=== PATIENT | male | born 1965 | race Caucasian/White ===

== ENCOUNTER 2018-11-29 16:54 | Emergency (ER) | payer MEDICAID ==
[2018-11-29] MEDS ORDERED: ACETAMINOPHEN 1,000 MG/100 ML BTL IVPB ONE (17:32)
--- NOTE | 2018-11-29 17:42 | Emergency Department Record ---
History of Present Illness - General Chief Complaint: Back Pain/Injury Stated Complaint: BACK PAIN Time Seen by Provider: 11/29/18 17:24 Source: Patient Mode of Arrival: Ambulatory Limitations: No limitations - History of Present Illness Initial Comments: The patient is here due to worsening of his chronic back pain. The patient has a long hx of pain and last evening he helped his brother move a stove and the pain has been worse since. It does intermittently radiate to his buttocks but there is no leg numbness, weakness, or any bowel or bladder issues. The pain is worse with spine flexion and extension. The patient has had no trouble walking and did drive himself here. MD Complaint: Back pain Onset/Timin -: Days(s) Similar Symptoms Previously: Yes Place: Home Radiation: Buttocks Severity: Moderate Severity scale (1-10): 7 Quality: Other Consistency: Constant Improves With: None Worsens With: None Context: Turning/twisting, While lifting Associated Symptoms: Denies other symptoms Treatments Prior to Arrival: Acetaminophen, Heat therapy - Related Data Previous Rx's Medication Instructions Recorded Cyclobenzaprine HCl [Flexeril] 10 mg PO TID PRN #20 tablet 11/29/18 Allergies Allergy/AdvReac Type Severity Reaction Status Date / Time NSAIDS (Non-Steroidal Allergy Intermediate rash Verified 11/29/18 17:10 Anti-Inflamma Travel Screening - Travel/Exposure Within Last 30 Days Have you traveled within the last 30 days?: No - Travel/Exposure Within Last Year Have you traveled outside the [place] in the last year?: No - Additonal Travel Details Have you been exposed to anyone with a communicable illness?: No - Travel Symptoms Symptom Screening: None Review of Systems Constitutional: Denies: Chills, Fever Eyes: Denies: Eye discharge ENT: Denies: Congestion Respiratory: Denies: Cough, Dyspnea Past Medical History - SOCIAL HISTORY Smoking Status: Current every day smoker Alcohol Use: None Drug Use: None - RESPIRATORY Hx Respiratory Disorders: No - CARDIOVASCULAR Hx Cardio Disorders: No - NEURO Hx Neuro Disorders: Yes Hx Headaches: Yes (Migraines) - GI Hx GI Disorders: No - Hx Genitourinary Disorders: No - ENDOCRINE Hx Endocrine Disorders: No - MUSCULOSKELETAL Hx Musculoskeletal Disorders: Yes - PSYCH Hx Psych Problems: No - HEMATOLOGY/ONCOLOGY Hx Hematology/Oncology Disorders: No Family Medical History Any Significant Family History?: Yes Hx Cancer: Mother Hx Diabetes: Mother Hx Heart Disease: Mother Physical Exam - General General Appearance: Alert, Oriented x3, Cooperative, No acute distress - Head Head exam: Atraumatic, Normocephalic, Normal inspection - Eye Eye exam: Normal appearance, PERRL, EOMI - Neck Neck exam: Normal inspection, Full ROM. negative: Tenderness - Respiratory Respiratory exam: Normal lung sounds bilaterally. negative: Respiratory distress - Cardiovascular Cardiovascular Exam: Regular rate, Normal rhythm, Normal heart sounds - GI/Abdominal GI/Abdominal exam: Soft, Normal bowel sounds. negative: Rebound, Rigid, Tenderness - Extremities Extremities exam: Normal inspection, Full ROM, Normal capillary refill. negative: Tenderness - Back Back exam: Reports: Normal inspection, Other (Neg SLR bilaterally.). Denies: Full ROM (There is decreased ROM due to pain.), Muscle spasm, Paraspinal tenderness, Rash noted, Tenderness, Vertebral tenderness - Neurological Neurological exam: Alert, Normal gait, Oriented X3, Reflexes normal. negative: Abnormal gait, Altered, Motor sensory deficit Course Vital Signs 11/29/18 17:11 Temperature 98.1 F Pulse Rate 83 Respiratory 20 Rate Blood Pressure 140/77 Pulse Ox 97 - Reevaluation(s) Reevaluation #1: The patient is doing better. I did discuss the lab and xray results with him and the need for further evaluation if not better. 11/29/18 18:41 Medical Decision Making - Data Complexity MDM Data: Labs Ordered and/or Reviewed, X-Ray Ordered and/or Reviewed - Lab Data Result diagrams: 11/29/18 17:50 11/29/18 17:50 - Radiology Data Radiology results: Report reviewed (Lumbar spine: DJD, neg for acute changes.) Disposition Disposition: Discharge Clinical Impression: Chronic back pain Qualifiers: Back pain laterality: unspecified Sciatica presence: unspecified whether sciatica present Disposition: Home, Self-Care Condition: (2) Stable Instructions: Low Back Strain (ED) Additional Instructions: Please take Tylenol and Flexeril as directed for pain and see your family doctor for recheck later this week. Return to the ER for any worsening symptoms. Prescriptions: Cyclobenzaprine HCl [Flexeril] 10 mg PO TID PRN #20 tablet PRN Reason: Pain Forms: Patient Portal Access Time of Disposition: 18:42 Quality - Quality Measures Quality Measures: N/A - Blood Pressure Screening View Details: Yes Does Patient Have Any of the Following: No Blood Pressure Classification: Hypertensive Reading Systolic Measurement: 140 Diastolic Measurement: 77 Screening for High Blood Pressure: < First Hypertensive BP, F/U Documented > [ [id number]] First Hypertensive Follow-up Interventions: Referral to alternative/primary care provider.
[2018-11-29 18:02] LABS: BASO % 0.4 % (0-6); EOS % 1.7 % (0-6); GRAN % 64.6 % (47-80); HEMATOCRIT 44.1 % (42.0-52.0); HEMOGLOBIN 14.5 gm/dl (14.0-18.0); LYMPH % 25.3 % (16-45); MEAN CELL VOLUME 92.8 fl (81-97); MEAN CORPUSCULAR HEMOGLOBIN 30.5 pg (27-33); MEAN CORPUSCULAR HGB CONC 32.9 g/dl (32-36); MEAN PLATELET VOLUME 8.8 fl (7.4-10.4); PLATELET COUNT 291 K/uL (130-400); RED BLOOD COUNT 4.75 M/uL (4.40-5.70); RED CELL DISTRIBUTION WIDTH 13.4 % (11.5-14.5); WHITE BLOOD COUNT W/O DIFF 7.3 K/uL (4.2-12.2)
[2018-11-29 18:11] LABS: BLOOD UREA NITROGEN 11 mg/dL (6-20); CREATININE 0.9 mg/dL (0.7-1.2); EST GLOMERULAR FILTRATION RATE > 60 mL/min
[2018-11-29 18:14] LABS: GLUCOSE,RANDOM 90 mg/dL (74-109)
--- NOTE | 2018-11-30 20:26 | RADIOLOGY REPORT ---
EXAM: LUMBAR SPINE / AP LAT HISTORY: LOW BACK PAIN FOR MANY YEARS. WORSE PAIN TODAY AFTER LIFTING OBJECTS. PAIN WITH MOTION. TECHNIQUE: AP, lateral, and lateral spot views of the lumbar spine were obtained. COMPARISON: None. FINDINGS: There are five lumbar vertebral segments. The intervertebral disc spaces and vertebral body heights are maintained. Minor endplate degenerative changes are present throughout. Facet arthropathy is noted within the lower lumbar levels. There is no spondylolisthesis or acute compression fracture. Visualized portions of the bony pelvis appear intact. Vascular calcifications are present within the aorta with no visible aneurysm. IMPRESSION: 1. NO ACUTE LUMBAR SPINE PATHOLOGY. 2. MILD MULTILEVEL DEGENERATIVE CHANGES, ABOVE. JOB NUMBER: [id number] [facility]
== END 2018-11-29 18:50 | disposition home or self-care (01) ==
LOC: ER 16:54
DX: G89.29 Other chronic pain (principal); M54.5 Low back pain; X50.0XXA Overexertion from strenuous movement or load, initial encounter; F17.210 Nicotine dependence, cigarettes, uncomplicated
CPT/HCPCS: 72100; 80048; 85025; 96365; 99284